=== PATIENT | female | born 1980 | race American Indian/Alaskan Native ===

== ENCOUNTER 2021-09-24 10:45 | Emergency (ER) | payer MEDICAID ==
[2021-09-24 12:22] VITALS: BP 105/62
[2021-09-24 13:39] LABS: Hematocrit 34.6 % (30.3-42.9); Mean Corpuscular HGB Conc 35 % (30-34); Mean Corpuscular Volume 91 fl (79-97); Platelet Count 284 K/mm3 (140-440); Red Blood Count 3.82 M/mm3 (3.65-5.03); Red Cell Distribution Width 12.9 % (13.2-15.2)
--- NOTE | 2021-09-24 13:50 | Ultrasound Report ---
ULTRASOUND OBSTETRIC INDICATION / CLINICAL INFORMATION: pain. Clinical Gestational Age (GA) in weeks, days: 13, 5 TECHNIQUE: Transabdominal. COMPARISON: None available. FINDINGS: Single intrauterine . Biparietal Diameter = 2.5 cm = 14, 2 weeks, days Head Circumference = 9.3 cm = 14, 1 weeks, days Abdominal Circumference = 8.6 cm = 14, 6 weeks, days Femur Length = 1.9 cm = 15, 4 weeks, days Average Ultrasound Age (AUA) = 14, 3 weeks, days Heart Rate: 145 beats per minute. Position: Variable Cervix: closed. Length in cm (if measured): 3.2 Placenta: Right lateral and free of the os. Amniotic Fluid Volume: normal Maternal Adnexa: No significant abnormality. IMPRESSION: 1. Single, living intrauterine with estimated sonographic age of 14, 3 weeks, days. 2. No significant sonographic abnormality. Signer Name: Beto Rocha MD Signed: 09/24/2021 1:45 PM Workstation Name: Results Scorecard
[2021-09-24 13:59] LABS: Blood Urea Nitrogen 4 mg/dL (7-17); Calcium 9.4 mg/dL (8.4-10.2); Hemolysis Index 1
[2021-09-24 14:13] LABS: BUN/Creatinine Ratio 10
[2021-09-24 15:02] LABS: Bilirubin,Urine Negative (Negative); Blood,Urine Large (Negative); Color,Urine Straw (Yellow)
[2021-09-24 15:03] LABS: Urobilinogen,Urine < 2.0 mg/dL (<2.0)
--- NOTE | 2021-09-24 15:19 | Emergency Department Report ---
ED Female HPI - General Chief complaint: Vaginal Bleeding Stated complaint: 13WK SPOTTING WITH CRAMPS Time Seen by Provider: 09/24/21 15:13 Source: patient Mode of arrival: Ambulatory Limitations: No Limitations - Related Data Allergies Allergy/AdvReac Type Severity Reaction Status Date / Time No Known Allergies Allergy Unverified 09/24/21 12:30 ED Review of Systems ROS: Stated complaint: 13WK SPOTTING WITH CRAMPS Other details as noted in HPI ED Past Medical Hx - Past Medical History Previous Medical History?: No ED Physical Exam - General Limitations: No Limitations ED Course Vital Signs 09/24/21 12:20 Temperature 98.5 F Pulse Rate 100 H Respiratory 18 Rate Blood Pressure 105/62 [Left] O2 Sat by Pulse 100 Oximetry ED Medical Decision Making - Lab Data Result diagrams: 09/24/21 13:01 09/24/21 13:01 Critical care attestation.: If time is entered above; I have spent that time in minutes in the direct care of this critically ill patient, excluding procedure time. ED Disposition Clinical Impression: Vaginal bleeding during Disposition: 01 HOME / SELF CARE / HOMELESS Is pt being admited?: No Does the pt Need Aspirin: No Condition: Stable Referrals: FUENTES KAN MD [Staff Physician] - 3-5 Days Time of Disposition: 15:18
[2021-09-24 15:20] LABS: Mucus,Urine 3+ /HPF
== END 2021-09-24 15:45 | disposition home or self-care (01) ==
LOC: ED 10:45
DX: O20.9 Hemorrhage in early pregnancy, unspecified (principal); Z3A.13 13 weeks gestation of pregnancy
CPT/HCPCS: 36415; 76805; 80048; 81001; 84702; 85027; 86900; 86901; 99284